=== PATIENT | female | born 2000 | race Caucasian/White ===

== ENCOUNTER 2019-09-17 20:30 | Emergency (ER) | payer MEDICAID ==
[~2019-09-17] VITALS: Ht 154.9 cm; Wt 56.4 kg
[2019-09-17] MEDS ORDERED: ONDANSETRON 4MG ODT PO ONE (23:00)
[2019-09-18] MEDS ORDERED: ACETAMINOPHEN 500MG TABLET PO SCH
[2019-09-18 00:22] LABS: CLARITY URINE CLEAR (CLEAR); COLOR URINE YELLOW (YELLOW); KETONES URINE NEGATIVE (NEGATIVE); LEUKOCYTE ESTERASE URINE NEGATIVE (NEGATIVE); NITRITE URINE NEGATIVE (NEGATIVE); OCCULT BLOOD URINE 2+ (NEGATIVE); PROTEIN URINE NEGATIVE (NEGATIVE); SPECIFIC GRAVITY URINE 1.029 (1.005-1.030)
[2019-09-18 01:50] VITALS: BP 115/66
== END 2019-09-18 01:52 | disposition home or self-care (01) ==
LOC: ER 20:30
DX: R11.0 Nausea (principal); J45.909 Unspecified asthma, uncomplicated; Z90.49 Acquired absence of other specified parts of digestive tract; Z98.890 Other specified postprocedural states
CPT/HCPCS: 81003; 81025; 99283; Q0162

== ENCOUNTER 2020-03-17 23:50 | Observation (INO) | payer MEDICAID ==
[~2020-03-17] VITALS: Ht 154.9 cm; Wt 68.0 kg
[2020-03-18] MEDS ORDERED: ALBUTEROL (00:17)
[2020-03-18 01:09] LABS: CLARITY URINE CLEAR (CLEAR); COLOR URINE YELLOW (YELLOW); KETONES URINE NEGATIVE (NEGATIVE); LEUKOCYTE ESTERASE URINE 2+ (NEGATIVE); NITRITE URINE NEGATIVE (NEGATIVE); OCCULT BLOOD URINE NEGATIVE (NEGATIVE); PROTEIN URINE NEGATIVE (NEGATIVE); SPECIFIC GRAVITY URINE 1.021 (1.005-1.030)
[2020-03-18] MEDS ORDERED: ANTIBIOTIC FOR UTI (01:20)
== END 2020-03-18 03:20 | disposition home or self-care (01) ==
LOC: 8 EST LDRP 23:50
PROVIDERS: ADMIT Obstetrics & Gynecology; ATTEND Obstetrics & Gynecology
DX: O62.9 Abnormality of forces of labor, unspecified (principal); O99.891 Other specified diseases and conditions complicating pregnancy; M54.5 Low back pain; Z3A.31 31 weeks gestation of pregnancy
CPT/HCPCS: 59025; 76805; 76818; 81003; 82962; G0378; 99281

== ENCOUNTER 2020-04-09 11:19 | Observation (INO) | payer MEDICAID ==
[~2020-04-09] VITALS: Ht 154.9 cm; Wt 63.5 kg
[~2020-04-09 11:19] MED LIST: ALBUTEROL; ANTIBIOTIC FOR UTI
== END 2020-04-09 13:00 | disposition home or self-care (01) ==
LOC: 8 EST LDRP 11:19
PROVIDERS: ADMIT Obstetrics & Gynecology; ATTEND Obstetrics & Gynecology
DX: O26.893 Other specified pregnancy related conditions, third trimester (principal); R10.9 Unspecified abdominal pain; Z3A.34 34 weeks gestation of pregnancy
CPT/HCPCS: 59025; G0378; 99281

== ENCOUNTER 2021-05-04 11:20 | Emergency (ER) | payer OTHER, MEDICAID ==
[~2021-05-04] VITALS: Ht 154.9 cm; Wt 65.0 kg
[2021-05-04] MEDS ORDERED: PREN-183 PO (11:38)
[2021-05-04 12:15] LABS: BASOPHILS % 0.4 % (0.0-2.0); EOSINOPHILS % 1.1 % (0.0-5.0); HEMATOCRIT. 38.8 % (36.0-48.0); HEMOGLOBIN. 12.8 g/dL (12.0-16.0); LYMPHOCYTES % 24.5 % (20.0-50.0); MEAN CORPUSCULAR HEMOGLOBIN 27.5 pg (28.0-32.0); MEAN CORPUSCULAR VOLUME 83.3 fL (81.0-99.0); MEAN PLATELET VOLUME 8.6 fl (7.4-10.4); MONOCYTES % 6.7 % (2.0-8.0); NEUTROPHILS % 67.3 % (40.0-76.0); PLATELET 277 x1000/uL (130-400); RED BLOOD CELL COUNT 4.66 mill/uL (4.2-5.4)
[2021-05-04 12:20] LABS: CHLORIDE 108 mEq/L (98-107)
[2021-05-04 12:31] LABS: B-HCG QUANTITATIVE 57 mIU/mL (<3)
[2021-05-04 14:09] VITALS: BP 110/59
== END 2021-05-04 14:11 | disposition home or self-care (01) ==
LOC: ER 11:55
DX: O20.0 Threatened abortion (principal); O99.281 Endocrine, nutritional and metabolic diseases complicating pregnancy, first trimester; R73.9 Hyperglycemia, unspecified; Z3A.01 Less than 8 weeks gestation of pregnancy
CPT/HCPCS: 36415; 76801; 80053; 84702; 85025; 86900; 99284

== ENCOUNTER 2021-09-30 19:40 | Emergency (ER) | payer OTHER, MEDICAID ==
[~2021-09-30] VITALS: Ht 154.9 cm; Wt 64.5 kg
[~2021-09-30 19:40] MED LIST changes: +PREN-183 PO
[2021-09-30 19:52] VITALS: BP 118/63
[2021-09-30] MEDS ORDERED: ACETAMINOPHEN 325MG TABLET PO PRN (20:30)
== END 2021-09-30 23:30 | disposition home or self-care (01) ==
LOC: ER 19:40
DX: O26.892 Other specified pregnancy related conditions, second trimester (principal); O9A.212 Injury, poisoning and certain other consequences of external causes complicating pregnancy, second trimester; S40.012A Contusion of left shoulder, initial encounter; R10.9 Unspecified abdominal pain; J45.909 Unspecified asthma, uncomplicated; Z3A.14 14 weeks gestation of pregnancy; V43.62XA Car passenger injured in collision with other type car in traffic accident, initial encounter; Y93.89 Activity, other specified; Y92.410 Unspecified street and highway as the place of occurrence of the external cause; Z90.49 Acquired absence of other specified parts of digestive tract; Z98.890 Other specified postprocedural states
CPT/HCPCS: 73030; 76805; 99284